=== PATIENT | male | born 1995 | race Caucasian/White ===

== ENCOUNTER 2017-10-06 06:15 | Emergency (ER) | payer OTHER ==
[~2017-10-06] VITALS: Ht 172.7 cm; Wt 106.5 kg
[2017-10-06 06:19] VITALS: TEMP 37.8; Ht 172.7 cm; Wt 106.5 kg
[2017-10-06 06:35] VITALS: O2SAT 91
[2017-10-06] MEDS ORDERED: ALBUT/IPRATROP 3MG/0.5MG NEB 3 ML VIAL INH STA (06:57)
--- NOTE | 2017-10-06 07:33 | DIAGNOSTIC IMAGING REPORT ---
TWO VIEW CHEST CLINICAL HISTORY: Fever. Cough and dyspnea. FINDINGS: PA and lateral chest radiographs are obtained. No prior studies are available for comparison at the time of dictation. The cardiomediastinal silhouette is unremarkable. There is patchy airspace consolidation at the left lung base. The right lung appears clear. No pleural effusion or pneumothorax is seen. The bony thorax appears intact. IMPRESSION: There is patchy airspace consolidation at the left lung base typical in appearance for pneumonia. Radiographic follow-up to resolution is recommended. Electronically signed by: Neri Augustin M.D. 10/06/2017 7:31 AM Dictated Date/Time: 10/06/2017 7:30 AM
[2017-10-06 07:46] VITALS: BP 128/86; PULSE 108; O2SAT 92
[2017-10-06] MEDS ORDERED: LEVOFLOXACIN 250 MG TAB PO STA (07:47)
[2017-10-06] MEDS ORDERED: LEVO500T19 PO (07:56)
--- NOTE | 2017-10-06 07:56 | EMERGENCY ROOM VISIT NOTE ---
History Report prepared by Josseline: Franca Benito Under the Supervision of: Dr. Pedro Pablo Forrest D.O. First contact with patient: 06:37 Chief Complaint: SHORTNESS OF BREATH Stated Complaint: SOB History of Present Illness The patient is a 22 year old male who presents to the Emergency Room with complaints of worsening shortness of breath beginning over the last week. The patient states that 1 week ago he was febrile at 104. The patient states that he went to a [facility] clinic and was told that he had strep throat or bronchitis and was given steroids. He states that he finished his steroids and has not felt better. The patient states that he has still been febrile and would like a chest X-Ray done. The patient states that he has also had a cough and states that when he does cough he gets a "splitting pain in his head." The patient states that he has asthma and that he has used his inhaler to help alleviate his symptoms. He reports that he gets bronchitis every year but states that he has never had to go to a hospital for it before. 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 The patient reports that he is blind and that he has a history of anxiety. Source of History: patient Onset: over the last week Position: other (generalized) Quality: other (shortness of breath ) Timing: worsening Associated Symptoms: + fevers, + cough Review of Systems See HPI for pertinent positives & negatives. A total of 10 systems reviewed and were otherwise negative. Past Medical & Surgical Medical Problems: (1) Anxiety (2) Blind Family History Patient reports no known family medical history. Social History Smoking Status: Never Smoker Current/Historical Medications Scheduled Levofloxacin (Levaquin), 1 TAB PO DAILY Physical Exam Vital Signs Date Time Temp Pulse Resp B/P (MAP) Pulse Ox O2 Delivery O2 Flow Rate FiO2 10/06/17 07:46 108 18 128/86 92 Room Air 10/06/17 07:15 114 18 129/80 98 Nebulizer 10.0 10/06/17 06:38 117 10/06/17 06:35 91 Room Air 10/06/17 06:35 115 10/06/17 06:35 91 Room Air 10/06/17 06:19 37.8 132 18 128/75 91 Room Air Physical Exam CONSTITUTIONAL/VITAL SIGNS: Reviewed / noted above. GENERAL: Non-toxic in appearance. INTEGUMENTARY: Warm, dry, and [place]. HEAD: Normocephalic. EYES: without scleral icterus or trauma. ENT/OROPHARYNX: clear and moist. LYMPHADENOPATHY/NECK: Is supple without lymphadenopathy or meningismus. RESPIRATORY: Scattered wheezing, left greater than right. CARDIOVASCULAR: Regular rate and rhythm. GI/ABDOMEN: Soft and nontender. No organomegaly or pulsatile mass. No rebound or guarding. Normal bowel sounds. EXTREMITIES: Warm and well perfused. BACK: No CVA tenderness. NEUROLOGICAL: Intact without focal deficits. PSYCHIATRIC: normal affect. MUSCULOSKELETAL: Normally developed with good muscle tone. Medical Decision & Procedures ER Provider Diagnostic Interpretation: Radiology results as stated below per my review and radiologist interpretation: WO VIEW CHEST CLINICAL HISTORY: Fever. Cough and dyspnea. FINDINGS: PA and lateral chest radiographs are obtained. No prior studies are available for comparison at the time of dictation. The cardiomediastinal silhouette is unremarkable. There is patchy airspace consolidation at the left lung base. The right lung appears clear. No pleural effusion or pneumothorax is seen. The bony thorax appears intact. IMPRESSION: There is patchy airspace consolidation at the left lung base typical in appearance for pneumonia. Radiographic follow-up to resolution is recommended. Electronically signed by: Neri Augustin M.D. 10/06/2017 7:31 AM Dictated Date/Time: 10/06/2017 7:30 AM Medications Administered Medications (Trade) Dose Ordered Sig/Sharon Route Start Time Stop Time Status Last Admin Dose Admin Albuterol/ Ipratropium (Duoneb) 3 ml NOW STAT INH 10/06/17 06:57 10/06/17 06:59 DC 10/06/17 07:09 3 ML Levofloxacin (Levaquin Tab) 500 mg NOW STAT PO 10/06/17 07:47 10/06/17 07:49 DC 10/06/17 07:53 500 MG ED Course 0654: Previous medical records were reviewed. The patient was evaluated in room B7. A complete history and physical examination was performed. 0657: Ordered Duoneb 3 ml INH. 0747: Ordered Levaquin Tab 500 mg PO. 0757: On reevaluation, the patient is resting. I discussed the results and findings with the patient. He verbalized agreement of the treatment plan. He was discharged home. Medical Decision the differential was considered includes acute myocardial infarction, acute coronary syndrome, myocarditis, pericarditis, pericardial effusions /tamponad, esophageal perforation, pulmonary embolism, pneumonia, pneumothorax, cardiomyopathy, congestive heart, anemia , COPD/asthma exacerbation. This is a 22-year-old male who presents to the ED with a chief complaint of a cough productive of yellow sputum. The patient states that he has had the symptoms for about 5 days. He was seen at an urgent care and placed on prednisone and Tessalon Perles. He does have a history of asthma and uses albuterol inhaler. The patient has been having some fevers. Temperature today is 37.8. Heart rate was initially 132 in triage but when I saw the patient was 110. Oxygen saturations were 91% on room air. The patient reports having a strep test that was negative. His exam today reveals some scattered wheezes bilaterally. Chest x-ray reveals a left lower lobe pneumonia. The patient was started on Levaquin. He was given albuterol treatment here. He is felt to be stable for discharge and outpatient follow-up. Medication Reconcilliation Current Medication List: was personally reviewed by me Blood Pressure Screening Patient's blood pressure: Normal blood pressure Impression Primary Impression: Pneumonia Scribe Attestation The scribe's documentation has been prepared under my direction and personally reviewed by me in its entirety. I confirm that the note above accurately reflects all work, treatment, procedures, and medical decision making performed by me. Departure Information Dispostion Home / Self-Care Prescriptions Levofloxacin (LEVAQUIN) 500 Mg Tab 1 TAB PO DAILY for 7 Days, #7 TAB Prov: Pedro Pablo Forrest D.O. 10/06/17 Forms HOME CARE DOCUMENTATION FORM, IMPORTANT VISIT INFORMATION Patient Instructions My [facility] Additional Instructions Levaquin as prescribed for pneumonia. Continue your inhalers and prednisone. Follow-up with your doctor for further care and evaluation in 3-5 days. Return to the emergency department for worsening or new symptoms or any concerns. You have been examined and treated today on an emergency basis only. This is not a substitute for, or an effort to provide, complete comprehensive medical care. It is impossible to recognize and treat all injuries or illnesses in a single emergency department visit. It is therefore important that you follow up closely with your doctor. Call as soon as possible for an appointment.
== END 2017-10-06 08:25 | disposition home or self-care (01) ==
LOC: C.EDB 06:16
DX: J18.9 Pneumonia, unspecified organism (principal); J45.909 Unspecified asthma, uncomplicated; F41.9 Anxiety disorder, unspecified; H54.8 Legal blindness, as defined in USA